=== PATIENT | male | born 1945 | race Caucasian/White ===

== ENCOUNTER 2025-08-02 08:28 | Emergency (ER) | payer MEDICARE, SELFPAY ==
[2025-08-02 08:28] VITALS: BP 117/73; PULSE 96; RESP 21; TEMP 36.9; O2SAT 94; BMI 33.4
--- NOTE | 2025-08-02 08:56 | ED.VIS.FALL ---
HPI HPI - Fall History of Present Illness Chief Complaint: Fall Narrative Narrative: Patient is a 79-year-old male presenting to the emergency department for worsening right hip pain after a fall. Patient has a past medical history of prostate cancer for which he received radiation and is now in remission. Also has a past medical history of smoking and an MRI with stent placement. Patient states that his right hip is been bothering him for a while. States that this morning he tried to get out of bed to use the restroom when he had worsening pain in his right hip causing him to slump down to the ground. States that he did not fall. Denies hitting his head, loss of consciousness or use of oral anticoagulation. He denies any chest pain or shortness of breath. Patient denies any neck or back pain. Denies any saddle anesthesia, bowel or bladder retention or incontinence. States that this morning he also had an episode of dysuria and hematuria. Reports that he has had hematuria in the past but this was when he was receiving radiation. Denies any numbness or weakness in his lower extremities. [facility] Medical History Former smoker Myocardial infarct Home Medications ?Medication ?Instructions ?Recorded ?Last Taken ?Type ascorbic acid (vitamin C) 1,000 mg 1 g PO DAILY 08/02/25 Unknown History capsule cholecalciferol (vitamin D3) 125 5,000 unit PO DAILY 08/02/25 Unknown History mcg (5,000 unit) capsule cyanocobalamin (vitamin B-12) 1,000 mcg PO DAILY 08/02/25 Unknown History 1,000 mcg tablet (Vitamin B-12) folic acid 1 mg tablet 1 mg PO DAILY 08/02/25 Unknown History levofloxacin 750 mg tablet 750 mg PO DAILY 4 days #4 tabs 08/02/25 Unknown Rx losartan 25 mg tablet (Cozaar) 25 mg PO DAILY 08/02/25 Unknown History lovastatin 40 mg tablet 40 mg PO DAILY 08/02/25 Unknown History methotrexate sodium 2.5 mg tablet 20 mg PO QWEEK 08/02/25 Unknown History metoprolol succinate 25 mg capsule 25 mg PO BID 08/02/25 Unknown History sprinkle, ext. release 24 hr omeprazole 20 mg capsule,delayed 20 mg PO BID 08/02/25 Unknown History release Allergy/AdvReac Type Severity Reaction Status Date / Time lisinopril Allergy Mild COUGH Verified 08/02/25 08:33 Penicillins Allergy Mild Rash Verified 08/02/25 08:33 Surgical History History of coronary artery stent placement Social History Smoking Status: Former smoker ROS ROS ED ROS Narrative see HPI EXAM Physical Exam Narrative Exam Narrative: Vital signs: Reviewed General: Alert and oriented x 3. No acute distress HEENT: Head is normocephalic and atraumatic. No evidence of head trauma including no cephalhematoma, lacerations or abrasions. Sinuses nontender, pupils 2 mm equal round and reactive. Nares are patent. No septal hematoma. Oropharynx and throat exams normal. No oropharyngeal trauma. Neck: Supple without lymphadenopathy nontender. No midline cervical spinal tenderness to palpation. No step-offs or deformities. Cardiovascular: Regular rate and rhythm, no murmurs. No rubs or gallops. Normal S1 and S2. Radial and DP/PT pulses are 2+ and symmetric throughout. Respiratory: Clear to auscultation bilaterally. No wheezes, rales, rhonchi Chest: Chest wall is atraumatic and nontender to palpation. There is no crepitus, ecchymosis or erythema. Abdominal: Soft and nontender to palpation throughout. Normal bowel sounds. No guarding or rebound. Nonsurgical abdomen. No CVA tenderness to palpation. Extremities: No midline thoracic or lumbar spinal tenderness to palpation. No step-offs or deformities. Hips are stable to palpation. There is some very mild posterior lateral tenderness to the right hip. No obvious deformity. No tenderness to palpation of the right femur, knee, tib-fib, ankle or foot. Extremities are otherwise atraumatic and nontender to palpation. Patient is able to actively range at the hip with flexion and extension. Skin: No rash or redness. Neurological: Cranial nerves II through XII are grossly intact. 5 out of 5 strength in bilateral lower extremities. Normal sensation. Normal cerebellar function The rest of the physical exam is unremarkable Const Vital Signs: 08/02/25 08:28 08/02/25 08:41 08/02/25 10:30 Temperature 98.4 F Temperature Source Oral Pulse Rate 96 76 Respiratory Rate 21 H 18 Respiratory Effort Normal Blood Pressure 117/73 133/82 H Blood Pressure Mean 87 99 Pulse Ox 94 98 Oxygen Delivery Method Room Air Nasal Cannula Room Air Oxygen Flow Rate (L/min) 94 MDM MDM MDM Narrative Medical decision making narrative: Patient is a 79-year-old male presenting to the emergency department for worsening right hip pain after trying to get out of bed this morning. Patient was seen and examined. Vitals are stable. Patient resting bed comfortably no acute distress. X-rays of the right hip were obtained. I have low suspicion for fracture given he is able to actively range at the hip without significant pain. However with the patient's history of prostate cancer concern for possible pathologic fracture. If the x-ray is negative we will proceed with a CT to further evaluate. In terms of the patient's hematuria we will obtain a urinalysis given that he has dysuria as well. It is not painless. Will obtain basic blood work given his generalized weakness however he states this has been going on for years. Hip x-ray was reviewed by myself, no fracture seen. Radiology read in agreement. CBC with a leukocytosis of 16.6 and mild anemia of 12.8. BMP with no significant abnormalities. Normal kidney functioning. Urinalysis with no evidence of infection. There is occult blood noted though. Given no evidence of urinary tract infection I did obtain a CT of the abdomen and pelvis to evaluate for any bladder mass or kidney mass that could be causing a given his history of prostate cancer. This can also better evaluate his hip to look for any occult fracture that was not seen on x-ray. CT shows lung emphysema. Ground-glass attenuation of the left lung base could be atelectasis or pneumonia. Chronic findings seen in the radiology report. Given the patient's leukocytosis, CT findings of possible pneumonia and generalized weakness, will treat for possible pneumonia. Patient has a allergy to penicillins. Will treat with levofloxacin. First dose given here. Patient and family at bedside were updated on the findings. All questions answered. Patient ambulated with cane without significant difficulty. Patient discharged from the Emergency Department. I do not feel that the patient's evaluation reveals any acute reason for admission at this time. I instructed them to either follow-up with their primary care physician or promptly return to the Emergency Department for reevaluation should symptoms worsen or new symptoms develop. I explained what symptoms would indicate the need to return to the emergency department. Shared decision making was used. The patient voiced understanding of the treatment plan and is agreeable with it. Clinical impression Right hip pain Dysuria Hematuria Generalized weakness Pneumonia History & Record Review Discussion w/independent historian: Patient and Family Lab Data Attestation: I reviewed the patient's lab results. Labs: Laboratory Results - last 24 hr 08/02/25 08/02/25 09:00 10:10 WBC 16.6 H RBC 3.95 L Hgb 12.8 L Hct 36.2 L MCV 91.6 MCH 32.4 H MCHC 35.4 RDW Std Deviation 42.1 RDW Coeff of [place] 12.8 Plt Count 185 MPV 9.8 Immature Gran % (Auto) 0.400 Neut % (Auto) 89.6 H Lymph % (Auto) 3.0 L [place] % (Auto) 6.5 Eos % (Auto) 0.1 Baso % (Auto) 0.4 Absolute Neuts (auto) 14.9 H Absolute Lymphs (auto) 0.50 L Nucleated RBC % 0 Sodium 140 Potassium 3.7 Chloride 104 Carbon Dioxide 25.2 Anion Gap 11 BUN 17 Creatinine 0.88 Estim Creat Clear Calc 79.03 Est GFR (MDRD) Non-Af 87 BUN/Creatinine Ratio 19.2 Glucose 146 H Calcium 9.9 Urine Color Yellow Urine Clarity Clear Urine pH 5.0 Ur Specific [place] 1.025 Urine Protein 15 H Urine Glucose (UA) Normal Urine Ketones Negative Urine Occult Blood 10 H Urine Nitrite Negative Urine Bilirubin Negative Urine Urobilinogen Normal Ur Leukocyte Esterase Negative Urine RBC 0 SEEN Urine WBC 0-5 SEEN Ur Squamous Epith Cells 0 SEEN Urine Bacteria 0 SEEN Urine Mucus 0 SEEN Radiography Diagnostic Testing: Clinical Impression(s) from Imaging Studies Hip/Pelvis X-Ray 08/02/25 09:20 IMPRESSION: No definite fracture. Please note that if clinical concerns persists, cross-sectional imaging should be performed. Reading [facility] Abdomen/Pelvis CT 08/02/25 10:42 IMPRESSION: 1. Lung emphysema. Ground-glass attenuation of the left lung base could be atelectasis or pneumonia. 2. Bladder wall thickening which may be due to the decompressed state of the bladder or due to cystitis. 3. Hepatomegaly with fatty infiltration. 4. Umbilical hernia containing fat. 5. Right inguinal hernia containing fat and part of the urinary bladder. 6. Left inguinal hernia containing fat. 7. Fecal retention in the colon consistent with constipation. 8. Colonic diverticulosis without acute diverticulitis. 9. Degenerative changes lumbar spine as described. Reading Location: [facility] Chest X-Ray 08/02/25 10:45 IMPRESSION: Cardiomegaly with mild congestion. Reading Location: [facility] Discharge Plan Triage Chief Complaint: Fall ED Provider: Oumou Ferrer Dx/Rx/DC Orders Clinical Impression: Chronic pain of right hip, Fall, Pneumonia, Generalized weakness, Hematuria Instructions: ED Hematuria, ED Hip Contusion, ED Pneumonia (Adult), ED RICE Prescriptions: New levofloxacin 750 mg tablet 750 mg PO DAILY 4 Days Qty: 4 0RF No Action folic acid 1 mg tablet 1 mg PO DAILY metoprolol succinate 25 mg capsule,sprinkle,ER 24hr 25 mg PO BID lovastatin 40 mg tablet 40 mg PO DAILY losartan [Cozaar] 25 mg tablet 25 mg PO DAILY omeprazole 20 mg capsule,delayed release(DR/EC) 20 mg PO BID methotrexate sodium 2.5 mg tablet 20 mg PO QWEEK ascorbic acid (vitamin C) 1,000 mg capsule 1 g PO DAILY cyanocobalamin (vitamin B-12) [Vitamin B-12] 1,000 mcg tablet 1,000 mcg PO DAILY cholecalciferol (vitamin D3) 125 mcg (5,000 unit) capsule 5,000 unit PO DAILY Primary Care Provider: Margot Mckinley Referrals: Margot Mckinley MD [Primary Care Provider, Internal Medicine] - As soon as possible Activity Restrictions/Additional Instructions: Take the antibiotic daily for 4 days. You can take Motrin or Tylenol for hip pain. Your evaluation in the Emergency Department did not reveal any acute reason for admission. However, I want to emphasize that you may be early in the course of a disease process or illness even if it is not present. For this reason you should follow-up within 24 hours for reevaluation with either your primary care physician or if necessary back here in the Emergency Department. You should return to the Emergency Department immediately if your symptoms worsen or new symptoms develop. Print Language: Syriac Disposition Disposition: Home, Self Care
[2025-08-02] MEDS: HYDROcodone Bitartrate/Apap 5/325 Tablet PO (09:06)
[2025-08-02 09:09] LABS: Hematocrit 36.2 % (40-54); Hemoglobin 12.8 g/dL (13.0-16.5); Immature Granulocytes Count 0.060 X10^3/uL (0.0-0.0); Mean Corp Hgb Conc 35.4 g/dL (32-36); Mean Corpuscular Volume 91.6 fL (80-94); Mean Platelet Vol. 9.8 fl (6.2-12.0); NRBC Flagged by Analyzer 0 % (0-5); POSITIVE DIFFERENTIAL YES; Platelet Count 185 K/mm3 (150-450); RBC Distribution Width CV 12.8 % (11.6-14.6); RBC Distribution Width SD 42.1 fl (35.1-43.9); Red Blood Count 3.95 M/mm3 (4.6-6.2); White Blood Count 16.6 K/mm3 (4.4-11.0)
--- NOTE | 2025-08-02 09:20 | RAD_ITS ---
PROCEDURE: RAD/HIP, UNI W/ Pelvis 2-3 Views
[2025-08-02 09:42] LABS: Anion Gap 11 (5-15); BUN 17 mg/dL (4-19); BUN/Creat Ratio 19.2 RATIO (10-20); Calcium,Total 9.9 mg/dL (7.6-11.0); Carbon Dioxide 25.2 mmol/L (21.0-32.0); Chloride 104 mmol/L (98-108); Estimated Creatinine Clearance 79.03 ml/min (50-250); Glucose 146 mg/dL (70-99); Potassium 3.7 mmol/L (3.3-5.1)
[2025-08-02 10:12] LABS: Color, Urine Yellow (Yellow); Glucose, Dipstick Normal (Normal); Ketone-Dipstick Negative (Negative); Leukocyte Esterase-Dipstick Negative /ul (Negative); Mucous, Urine 0 SEEN /hpf (<or=2+); Nitrite-Dipstick Negative (Negative); Occult Blood-Urine 10 /ul (Negative); Protein-Dipstick 15 mg/dl (Negative); Red Blood Cells-Urine 0 SEEN /hpf (0-5); Specific Gravity, Urine 1.025 (1.002-1.030); Squamous Epithelial Cells - UA 0 SEEN /hpf (0-5); Urine Bilirubin Dipstick Negative (Negative)
[2025-08-02 10:30] VITALS: BP 133/82; PULSE 76; RESP 18; O2SAT 98
--- NOTE | 2025-08-02 10:42 | CT_ITS ---
CT/Abdomen/Pelvis W IV Cont ONLY
--- NOTE | 2025-08-02 10:45 | RAD_ITS ---
RAD/Chest PA and Lateral
[2025-08-02 12:00] VITALS: BP 131/78; PULSE 78; RESP 16; O2SAT 97
[2025-08-02 12:37] VITALS: BP 131/78; PULSE 78; RESP 16; TEMP 36.6; O2SAT 97
== END 2025-08-02 12:40 | disposition home or self-care (01) ==
PROVIDERS: Emergency Provider Student in an Organized Health Care Education/Training Program; PCP Internal Medicine; Visit Provider Student in an Organized Health Care Education/Training Program
DX: M25.551 Pain in right hip (principal); J18.9 Pneumonia, unspecified organism; Z87.891 Personal history of nicotine dependence; R30.0 Dysuria; G89.29 Other chronic pain; R53.1 Weakness; R31.9 Hematuria, unspecified; Z85.46 Personal history of malignant neoplasm of prostate; Z92.3 Personal history of irradiation; I25.2 Old myocardial infarction
CPT/HCPCS: 71046; 73502; 74177; 80048; 81001; 85025; 93005; 99285; P9612; Q9967; A4216